=== PATIENT | male | born 1990 | race Caucasian/White ===

== ENCOUNTER 2017-03-23 10:36 | Emergency (ER) | payer MEDICARE, BC ==
[~2017-03-23] VITALS: Ht 172.7 cm; Wt 79.0 kg
[2017-03-23 10:42] VITALS: Ht 172.7 cm; Wt 79.0 kg
--- NOTE | 2017-03-23 12:51 | RADRPT ---
PROCEDURE: XR Right Shoulder CLINICAL INDICATION: Pain TECHNIQUE: AP internal and external rotation views were submitted. COMPARISON: None FINDINGS: Osseous structures: appear well mineralized and intact with no fracture or destructive process iden tified. Joint spaces: The glenohumeral joint appears unremarkable. The AC joint appears normal. Soft tissues: appear unremarkable. IMPRESSION: Unremarkable right shoulder. Physician Clara Date Time Electronically viewed and signed by Physician Clara on 03/23/2017 12:51 /
[2017-03-23] MEDS ORDERED: NAPR-260 PO (12:58)
--- NOTE | 2017-03-23 13:05 | ERD ---
ER Documentation Chief Complaint Date/Time DATE: 03/23/17 TIME: 13:03 Chief Complaint right shoulder pain x 4 days HPI 27-year-old male complains of right anterior shoulder pain in the glenohumeral region for the past 4 days after he worked out. This patient is congenitally deaf, and he is here with his mother who is helping interpret. Patient was doing a pull-up, and he had sharp pain that is in the glenohumeral area, nonradiating, worse with any movement and described as achy and moderate. He denies any weakness or difficulty moving the shoulder. No history of fever or chills, no swelling. ROS All systems reviewed and are negative except as per history of present illness. Medications Home Meds Active Scripts Naproxen* (Naprosyn*) 500 Mg Tablet, 500 MG PO BID Y for PAIN AND/OR INFLAMMATION, #30 TAB Prov:NORTH SHEARER PA-C 03/23/17 Reported Medications [None] No Conflict Check 02/17/11 Allergies Allergies: Coded Allergies: No Known Allergy (Unverified Allergy, Unknown, 02/17/11) PMhx/Soc Medical and Surgical Hx: pt denies Medical Hx History of Surgery: No Anesthesia Reaction: No Hx Neurological Disorder: No Hx Respiratory Disorders: No Hx Cardiac Disorders: No Hx Psychiatric Problems: No Hx Miscellaneous Medical Probl: No Hx Alcohol Use: No Hx Substance Use: No Hx Tobacco Use: No Physical Exam Vitals Vital Signs Date Time Temp Pulse Resp B/P Pulse Ox O2 Delivery O2 Flow Rate FiO2 03/23/17 10:42 98.3 62 18 128/59 100 Physical Exam General: Well-developed, well-nourished. The patient appears in no acute distress. HEENT: Head is normocephalic, atraumatic. No scleral icterus. Neck: Supple. Nontender. Lungs: Clear to auscultation. Normal air movement. Heart: Regular rate and rhythm. S1 and S2 are normal. No murmurs, gallops, or rubs. Abdomen: Nondistended. Extremities: Right shoulder has tenderness over the glenohumeral area, there is full range of motion of the right shoulder, there is no swelling, warmth. No bony deformities. Radial, ulnar, median nerve intact. Neurologic: Alert and oriented 3. No focal deficits. Normal speech and gait. Skin: Normal turgor. No rash or lesions. Results 24 hrs PROCEDURE: XR Right Shoulder CLINICAL INDICATION: Pain TECHNIQUE: AP internal and external rotation views were submitted. COMPARISON: None FINDINGS: Osseous structures: appear well mineralized and intact with no fracture or destructive process identified. Joint spaces: The glenohumeral joint appears unremarkable. The AC joint appears normal. Soft tissues: appear unremarkable. IMPRESSION: Unremarkable right shoulder. Physician Clara Date Time Electronically viewed and signed by Physician Clara on 03/23/2017 12:51 RH/ CC: NORTH SHEARER PA-C Procedures/MDM 27-year-old male comes in with right shoulder pain, his physical examination of the shoulder sprain. He has no weakness with shoulder mobility, there is no evidence of rotator cuff tear, this is likely rotator cuff tendinitis. His x- ray is unremarkable, and he is neurologically intact and is appropriate to discharge be discharged. Departure Diagnosis: Primary Impression: Shoulder injury Condition: Good Patient Instructions: Shoulder Sprain Additional Instructions: Call your primary care doctor TOMORROW for an appointment during the next 1-2 days.See the doctor sooner or return here if your condition worsens before your appointment time. NORTH SHEARER PA-C March 23, 2017 13:05
== END 2017-03-23 13:13 | disposition home or self-care (01) ==
LOC: FTE 10:36
DX: S49.91XA Unspecified injury of right shoulder and upper arm, initial encounter (principal); X58.XXXA Exposure to other specified factors, initial encounter; Y92.9 Unspecified place or not applicable

== ENCOUNTER 2019-07-06 07:13 | Emergency (ER) | payer MEDICARE, BC ==
[~2019-07-06] VITALS: Ht 177.8 cm; Wt 86.4 kg
[~2019-07-06 07:13] MED LIST: NAPR-985 PO
[2019-07-06] MEDS ORDERED: HALOPERIDOL 5 MG INJ IM STA (07:16)
[2019-07-06] MEDS ORDERED: SOD CHLORIDE 0.9% 1,000 ML IV STA (07:16)
[2019-07-06] MEDS ORDERED: LORAZEPAM 2 MG INJ IM STA (07:16)
[2019-07-06] MEDS ORDERED: DIPHENHYDRAMINE 50 MG INJ ONE (07:17)
[2019-07-06] MEDS ORDERED: HALOPERIDOL 5 MG INJ ONE (07:17)
[2019-07-06 07:18] VITALS: Ht 177.8 cm; Wt 86.4 kg
[2019-07-06] MEDS ORDERED: DIPHENHYDRAMINE 50 MG INJ IM ONE (07:30)
[2019-07-06] MEDS ORDERED: KETAMINE HCL (50 MG/ML) 1ml syringe IM STA (07:43)
[2019-07-06] MEDS ORDERED: KETAMINE (50 MG/ML) 10 ML VIAL IM ONE (08:00)
[2019-07-06] MEDS ORDERED: KETAMINE (50 MG/ML) 10 ML VIAL IV ONE (08:00)
[2019-07-06] MEDS ORDERED: OLANZAPINE 10 MG VIAL IM ONE (08:00)
[2019-07-06 17:01] VITALS: BP 115/78; PULSE 60; RESP 17
== END 2019-07-06 17:39 | disposition home or self-care (01) ==
LOC: E/R 07:13
DX: R56.9 Unspecified convulsions (principal); R40.2142 Coma scale, eyes open, spontaneous, at arrival to emergency department; R40.2242 Coma scale, best verbal response, confused conversation, at arrival to emergency department; R40.4 Transient alteration of awareness; D72.829 Elevated white blood cell count, unspecified; E87.6 Hypokalemia; F12.10 Cannabis abuse, uncomplicated
CPT/HCPCS: 36415; 70450; 80053; 80307; 81001; 82962; 85025; 93005; 96360; 96361; 96372; 99285; J1200; J1630; J2060; J7030